=== PATIENT | female | born 1945 | race Caucasian/White ===

== ENCOUNTER 2022-02-24 09:34 | Inpatient (IN) ==
[2022-02-24] MEDS: *HR* Metformin 500 MG TABLET PO SCH (17:37)
[2022-02-24] MEDS: Primidone 50 MG TABLET PO SCH (21:35)
[2022-02-24] MEDS: rOPINIRole 0.25 MG TABLET PO SCH (21:35)
[2022-02-24] MEDS: Gabapentin 300 MG CAPSULE PO SCH (21:36)
[2022-02-25 03:53] LABS: Basophils % 0.4 %; Eosinophils # 0.2 K/mcL (0.0-0.6); Eosinophils % 2.1 %; Hematocrit 37.2 % (35.3-44.9); Hemoglobin 12.6 g/dL (11.5-15.4); Immature Granulocytes % 0.4 % (0-4); Lymphocytes # 2.4 K/mcL (0.6-4.6); Lymphocytes % 33.4 %; Mean Corpuscular HGB Conc 33.9 g/dL (31.6-35.5); Mean Corpuscular Hemoglobin 31.8 pg (28.0-33.3); Mean Corpuscular Volume 93.9 fL (83.0-100.0); Mean Platelet Volume 11.1 fL (9.4-12.4); Monocytes # 0.6 K/mcL (0.0-1.3); Monocytes % 8.7 %; Neutrophils # 3.9 K/mcL (1.6-8.9); Platelet Count 148 K/mcL (140-400); Red Blood Count 3.96 M/mcL (3.82-4.97); Red Cell Distribution Width 13.8 % (11.5-14.5)
[2022-02-25 04:08] LABS: Albumin 4.2 g/dL (3.5-5.7); Albumin/Globulin Ratio 1.4 (1.1-2.2); Bilirubin,Total 0.3 mg/dL (0.3-1.0); Calcium 9.4 mg/dL (8.6-10.3); Globulin 2.9 g/dL (2.4-3.5); Magnesium 1.8 mg/dL (1.6-2.6); Potassium 4.2 mEq/L (3.5-5.1); Total Protein 7.1 g/dL (6.4-8.9)
[2022-02-25] MEDS: Cyanocobalamin (B-12) 1,000 MCG TABLET PO SCH (08:53)
[2022-02-25] MEDS: allopurinoL 300 MG TABLET PO SCH (08:53)
[2022-02-25] MEDS: Gabapentin 300 MG CAPSULE PO SCH ×3 (08:53→20:22)
[2022-02-25] MEDS: Multivit/Ca/Min/Fe/FA 1 TAB TABLET PO SCH (08:53)
[2022-02-25] MEDS: Ascorbic Acid 500 MG TABLET PO SCH (08:54)
[2022-02-25] MEDS: Cholecalciferol (D-3) 1,000 UNIT (25MCG) TABLET PO SCH (08:55)
[2022-02-25] MEDS: *HR* Metformin 500 MG TABLET PO SCH ×2 (08:55→16:48)
[2022-02-25] MEDS: Furosemide 20 MG TABLET PO SCH (08:55)
[2022-02-25] MEDS: lisinopriL 20 MG TABLET PO SCH (08:55)
[2022-02-25] MEDS: Primidone 50 MG TABLET PO SCH ×3 (08:55→20:20)
[2022-02-25] MEDS ORDERED: *HR* GlipiZIDE XL (24 HR) 2.5 MG TABLET PO SCH (09:00)
[2022-02-25] MEDS ORDERED: Fluticasone Propionate Nasal 50 MCG/SPRAY BOTTLE NS SCH (09:00)
[2022-02-25] MEDS ORDERED: *HR* Pioglitazone 15 MG TABLET PO SCH ×2 (09:00→17:00)
[2022-02-25] MEDS ORDERED: (Dulaglutide [Trulicity] 1.5 MG/0.5 ML Pen.Injctr) SUBQ SCH (09:00)
[2022-02-25] MEDS ORDERED: Magnesium Oxide 400 MG TABLET PO SCH (09:00)
[2022-02-25] MEDS ORDERED: Fluticasone Propionate Nasal 50 MCG/SPRAY BOTTLE NS PRN (09:07)
[2022-02-25] MEDS ORDERED: Nystatin Cream 15 GM TUBE TP PRN (15:26)
[2022-02-25] MEDS: Acetaminophen 325 MG TABLET PO PRN ×2 (15:43→20:13)
[2022-02-25] MEDS: rOPINIRole 0.25 MG TABLET PO SCH (20:21)
[2022-02-26] MEDS: Cyanocobalamin (B-12) 1,000 MCG TABLET PO SCH (08:45)
[2022-02-26] MEDS: Primidone 50 MG TABLET PO SCH ×3 (08:45→21:01)
[2022-02-26] MEDS: Ascorbic Acid 500 MG TABLET PO SCH (08:45)
[2022-02-26] MEDS: Cholecalciferol (D-3) 1,000 UNIT (25MCG) TABLET PO SCH (08:45)
[2022-02-26] MEDS: lisinopriL 20 MG TABLET PO SCH (08:45)
[2022-02-26] MEDS: Acetaminophen 325 MG TABLET PO PRN ×3 (08:46→20:58)
[2022-02-26] MEDS: Multivit/Ca/Min/Fe/FA 1 TAB TABLET PO SCH (08:46)
[2022-02-26] MEDS: Furosemide 20 MG TABLET PO SCH (08:46)
[2022-02-26] MEDS: Gabapentin 300 MG CAPSULE PO SCH ×3 (08:46→21:02)
[2022-02-26] MEDS: allopurinoL 300 MG TABLET PO SCH (08:46)
[2022-02-26] MEDS: *HR* Metformin 500 MG TABLET PO SCH ×2 (08:46→15:53)
[2022-02-26 19:45] LABS: Estimated Average Glucose 111 mg/dl; Hemoglobin A1C 5.5 %
[2022-02-26] MEDS: rOPINIRole 0.25 MG TABLET PO SCH (21:01)
[2022-02-27] MEDS: Cyanocobalamin (B-12) 1,000 MCG TABLET PO SCH (08:28)
[2022-02-27] MEDS: *HR* Metformin 500 MG TABLET PO SCH ×2 (08:28→15:32)
[2022-02-27] MEDS: Furosemide 20 MG TABLET PO SCH (08:28)
[2022-02-27] MEDS: lisinopriL 20 MG TABLET PO SCH (08:28)
[2022-02-27] MEDS: Ascorbic Acid 500 MG TABLET PO SCH (08:28)
[2022-02-27] MEDS: Primidone 50 MG TABLET PO SCH ×3 (08:28→19:50)
[2022-02-27] MEDS: Multivit/Ca/Min/Fe/FA 1 TAB TABLET PO SCH (08:28)
[2022-02-27] MEDS: Gabapentin 300 MG CAPSULE PO SCH ×3 (08:28→19:49)
[2022-02-27] MEDS: Cholecalciferol (D-3) 1,000 UNIT (25MCG) TABLET PO SCH (08:29)
[2022-02-27] MEDS: allopurinoL 300 MG TABLET PO SCH (08:29)
[2022-02-27] MEDS: rOPINIRole 0.25 MG TABLET PO SCH (19:49)
[2022-02-27] MEDS: Acetaminophen 325 MG TABLET PO PRN (19:55)
[2022-02-28] MEDS: *HR* Metformin 500 MG TABLET PO SCH ×2 (09:00→16:52)
[2022-02-28] MEDS: Ascorbic Acid 500 MG TABLET PO SCH (09:00)
[2022-02-28] MEDS: Cholecalciferol (D-3) 1,000 UNIT (25MCG) TABLET PO SCH (09:00)
[2022-02-28] MEDS: Multivit/Ca/Min/Fe/FA 1 TAB TABLET PO SCH (09:00)
[2022-02-28] MEDS: allopurinoL 300 MG TABLET PO SCH (09:00)
[2022-02-28] MEDS: Gabapentin 300 MG CAPSULE PO SCH ×3 (09:01→21:11)
[2022-02-28] MEDS: Furosemide 20 MG TABLET PO SCH (09:01)
[2022-02-28] MEDS: Primidone 50 MG TABLET PO SCH ×3 (09:01→21:13)
[2022-02-28] MEDS: Cyanocobalamin (B-12) 1,000 MCG TABLET PO SCH (09:01)
[2022-02-28] MEDS: lisinopriL 20 MG TABLET PO SCH (09:01)
[2022-02-28] MEDS: (Dulaglutide [Trulicity] 1.5 MG/0.5 ML Pen.Injctr) SUBQ SCH (09:08)
[2022-02-28] MEDS: rOPINIRole 0.25 MG TABLET PO SCH (21:11)
[2022-02-28] MEDS: Acetaminophen 325 MG TABLET PO PRN (21:17)
[2022-03-01 05:01] LABS: Basophils % 0.4 %; Eosinophils # 0.1 K/mcL (0.0-0.6); Eosinophils % 1.8 %; Hematocrit 35.6 % (35.3-44.9); Hemoglobin 12.2 g/dL (11.5-15.4); Immature Granulocytes % 0.3 % (0-4); Lymphocytes % 39.2 %; Mean Corpuscular HGB Conc 34.3 g/dL (31.6-35.5); Mean Corpuscular Hemoglobin 31.8 pg (28.0-33.3); Mean Corpuscular Volume 92.7 fL (83.0-100.0); Mean Platelet Volume 11.2 fL (9.4-12.4); Monocytes # 0.6 K/mcL (0.0-1.3); Monocytes % 7.7 %; Neutrophils # 3.8 K/mcL (1.6-8.9); Platelet Count 155 K/mcL (140-400); Red Blood Count 3.84 M/mcL (3.82-4.97); Red Cell Distribution Width 14.1 % (11.5-14.5); Segmented Neutrophils % 50.6 %; White Blood Count 7.6 K/mcL (4.3-11.1)
[2022-03-01 05:16] LABS: Calcium 9.4 mg/dL (8.6-10.3); Potassium 4.8 mEq/L (3.5-5.1)
[2022-03-01] MEDS: Primidone 50 MG TABLET PO SCH ×3 (10:28→21:40)
[2022-03-01] MEDS: Multivit/Ca/Min/Fe/FA 1 TAB TABLET PO SCH (10:28)
[2022-03-01] MEDS: Ascorbic Acid 500 MG TABLET PO SCH (10:28)
[2022-03-01] MEDS: Cholecalciferol (D-3) 1,000 UNIT (25MCG) TABLET PO SCH (10:28)
[2022-03-01] MEDS: allopurinoL 300 MG TABLET PO SCH (10:28)
[2022-03-01] MEDS: *HR* Metformin 500 MG TABLET PO SCH ×2 (10:29→15:35)
[2022-03-01] MEDS: lisinopriL 20 MG TABLET PO SCH (10:29)
[2022-03-01] MEDS: Gabapentin 300 MG CAPSULE PO SCH ×3 (10:29→21:40)
[2022-03-01] MEDS: Furosemide 20 MG TABLET PO SCH (10:29)
[2022-03-01] MEDS: Cyanocobalamin (B-12) 1,000 MCG TABLET PO SCH (10:29)
[2022-03-01] MEDS: rOPINIRole 0.25 MG TABLET PO SCH (21:40)
[2022-03-01] MEDS: Acetaminophen 325 MG TABLET PO PRN (21:41)
[2022-03-02] MEDS: Ascorbic Acid 500 MG TABLET PO SCH (09:10)
[2022-03-02] MEDS: Cholecalciferol (D-3) 1,000 UNIT (25MCG) TABLET PO SCH (09:10)
[2022-03-02] MEDS: *HR* Metformin 500 MG TABLET PO SCH ×2 (09:10→16:25)
[2022-03-02] MEDS: Cyanocobalamin (B-12) 1,000 MCG TABLET PO SCH (09:10)
[2022-03-02] MEDS: Multivit/Ca/Min/Fe/FA 1 TAB TABLET PO SCH (09:10)
[2022-03-02] MEDS: Gabapentin 300 MG CAPSULE PO SCH ×3 (09:10→22:15)
[2022-03-02] MEDS: Furosemide 20 MG TABLET PO SCH (09:11)
[2022-03-02] MEDS: lisinopriL 20 MG TABLET PO SCH (09:11)
[2022-03-02] MEDS: Primidone 50 MG TABLET PO SCH ×3 (09:11→22:16)
[2022-03-02] MEDS: allopurinoL 300 MG TABLET PO SCH (09:11)
[2022-03-02] MEDS: Acetaminophen 325 MG TABLET PO PRN (16:29)
[2022-03-02] MEDS ORDERED: *HR* Dextrose 50 % in Water (Syg) 50 ML SYRINGE IVP PRN (18:19)
[2022-03-02] MEDS ORDERED: D5% in Water 1,000 ML IVC PRN (18:19)
[2022-03-02] MEDS ORDERED: Dextrose Gel 15 GM/37.5 ML TUBE PO PRN ×2 (18:19)
[2022-03-02] MEDS ORDERED: Insulin DETEMIR 100 UNIT/ML X5UNITS SUBQ SCH (21:00)
[2022-03-02] MEDS ORDERED: Insulin DETEMIR 100 UNIT/ML per UNIT SUBQ ONE (21:00)
[2022-03-02] MEDS ORDERED: Insulin LISPRO 300 UNITS/3 ML VIAL SUBQ SCH (21:00)
[2022-03-02] MEDS: rOPINIRole 0.25 MG TABLET PO SCH (22:17)
[2022-03-03 05:08] LABS: Basophils % 0.5 %; Eosinophils # 0.1 K/mcL (0.0-0.6); Hematocrit 35.8 % (35.3-44.9); Hemoglobin 12.1 g/dL (11.5-15.4); Immature Granulocytes % 0.3 % (0-4); Lymphocytes # 2.5 K/mcL (0.6-4.6); Lymphocytes % 38.9 %; Mean Corpuscular HGB Conc 33.8 g/dL (31.6-35.5); Mean Corpuscular Hemoglobin 31.6 pg (28.0-33.3); Mean Corpuscular Volume 93.5 fL (83.0-100.0); Mean Platelet Volume 10.8 fL (9.4-12.4); Monocytes # 0.5 K/mcL (0.0-1.3); Monocytes % 7.5 %; Neutrophils # 3.3 K/mcL (1.6-8.9); Red Blood Count 3.83 M/mcL (3.82-4.97); Segmented Neutrophils % 50.8 %; White Blood Count 6.5 K/mcL (4.3-11.1)
[2022-03-03 05:15] LABS: Platelet Count 135 K/mcL (140-400)
[2022-03-03 05:16] LABS: Platelet Estimate Normal (Normal)
[2022-03-03 05:24] LABS: Albumin/Globulin Ratio 1.6 (1.1-2.2); Bilirubin,Total 0.3 mg/dL (0.3-1.0); Calcium 9.1 mg/dL (8.6-10.3); Globulin 2.5 g/dL (2.4-3.5); Magnesium 1.6 mg/dL (1.6-2.6); Potassium 4.4 mEq/L (3.5-5.1); Total Protein 6.5 g/dL (6.4-8.9)
[2022-03-03 05:53] LABS: Thyroid Stimulating Hormone 2.119 mcIU/mL (0.340-5.600)
[2022-03-03] MEDS ORDERED: Insulin LISPRO 300 UNITS/3 ML VIAL SUBQ SCH (07:30)
[2022-03-03] MEDS: Cyanocobalamin (B-12) 1,000 MCG TABLET PO SCH (08:34)
[2022-03-03] MEDS: Multivit/Ca/Min/Fe/FA 1 TAB TABLET PO SCH (08:34)
[2022-03-03] MEDS: allopurinoL 300 MG TABLET PO SCH (08:34)
[2022-03-03] MEDS: Cholecalciferol (D-3) 1,000 UNIT (25MCG) TABLET PO SCH (08:34)
[2022-03-03] MEDS: lisinopriL 20 MG TABLET PO SCH (08:35)
[2022-03-03] MEDS: Ascorbic Acid 500 MG TABLET PO SCH (08:35)
[2022-03-03] MEDS: Furosemide 20 MG TABLET PO SCH (08:35)
[2022-03-03] MEDS: Acetaminophen 325 MG TABLET PO PRN ×3 (08:35→20:57)
[2022-03-03] MEDS: Gabapentin 300 MG CAPSULE PO SCH ×3 (08:35→20:56)
[2022-03-03] MEDS: Primidone 50 MG TABLET PO SCH ×3 (08:36→20:56)
[2022-03-03] MEDS: *HR* Metformin 500 MG TABLET PO SCH ×2 (08:36→15:38)
[2022-03-03] MEDS ORDERED: Insulin DETEMIR 100 UNIT/ML X5UNITS SUBQ SCH (09:00)
[2022-03-03] MEDS: rOPINIRole 0.25 MG TABLET PO SCH (20:56)
[2022-03-04] MEDS: Gabapentin 300 MG CAPSULE PO SCH ×3 (08:33→22:16)
[2022-03-04] MEDS: Ascorbic Acid 500 MG TABLET PO SCH (08:33)
[2022-03-04] MEDS: Furosemide 20 MG TABLET PO SCH (08:33)
[2022-03-04] MEDS: *HR* Metformin 500 MG TABLET PO SCH ×2 (08:34→16:54)
[2022-03-04] MEDS: lisinopriL 20 MG TABLET PO SCH (08:34)
[2022-03-04] MEDS: Cholecalciferol (D-3) 1,000 UNIT (25MCG) TABLET PO SCH (08:34)
[2022-03-04] MEDS: Multivit/Ca/Min/Fe/FA 1 TAB TABLET PO SCH (08:34)
[2022-03-04] MEDS: allopurinoL 300 MG TABLET PO SCH (08:34)
[2022-03-04] MEDS: Cyanocobalamin (B-12) 1,000 MCG TABLET PO SCH (08:34)
[2022-03-04] MEDS: Primidone 50 MG TABLET PO SCH ×3 (08:34→22:17)
[2022-03-04] MEDS: Acetaminophen 325 MG TABLET PO PRN (12:38)
[2022-03-04] MEDS: rOPINIRole 0.25 MG TABLET PO SCH (22:17)
[2022-03-05] MEDS: lisinopriL 20 MG TABLET PO SCH (11:52)
[2022-03-05] MEDS: Primidone 50 MG TABLET PO SCH ×3 (11:52→22:33)
[2022-03-05] MEDS: Furosemide 20 MG TABLET PO SCH (11:52)
[2022-03-05] MEDS: Gabapentin 300 MG CAPSULE PO SCH ×3 (11:52→22:33)
[2022-03-05] MEDS: Cholecalciferol (D-3) 1,000 UNIT (25MCG) TABLET PO SCH (11:52)
[2022-03-05] MEDS: *HR* Metformin 500 MG TABLET PO SCH ×2 (11:52→16:18)
[2022-03-05] MEDS: Cyanocobalamin (B-12) 1,000 MCG TABLET PO SCH (11:53)
[2022-03-05] MEDS: Acetaminophen 325 MG TABLET PO PRN ×2 (11:53→22:33)
[2022-03-05] MEDS: Multivit/Ca/Min/Fe/FA 1 TAB TABLET PO SCH (11:53)
[2022-03-05] MEDS: allopurinoL 300 MG TABLET PO SCH (11:53)
[2022-03-05] MEDS: Ascorbic Acid 500 MG TABLET PO SCH (11:53)
[2022-03-05] MEDS: rOPINIRole 0.25 MG TABLET PO SCH (22:33)
[2022-03-06] MEDS: Cyanocobalamin (B-12) 1,000 MCG TABLET PO SCH (08:46)
[2022-03-06] MEDS: Primidone 50 MG TABLET PO SCH ×3 (08:46→22:29)
[2022-03-06] MEDS: Ascorbic Acid 500 MG TABLET PO SCH (08:46)
[2022-03-06] MEDS: lisinopriL 20 MG TABLET PO SCH (08:47)
[2022-03-06] MEDS: Cholecalciferol (D-3) 1,000 UNIT (25MCG) TABLET PO SCH (08:47)
[2022-03-06] MEDS: allopurinoL 300 MG TABLET PO SCH (08:47)
[2022-03-06] MEDS: *HR* Metformin 500 MG TABLET PO SCH ×2 (08:49→15:52)
[2022-03-06] MEDS: Gabapentin 300 MG CAPSULE PO SCH ×3 (08:49→22:34)
[2022-03-06] MEDS: Furosemide 20 MG TABLET PO SCH (08:49)
[2022-03-06] MEDS: Multivit/Ca/Min/Fe/FA 1 TAB TABLET PO SCH (08:49)
[2022-03-06 13:02] LABS: Bilirubin,Urine Negative (Negative); Blood,Urine Trace-intact (Negative); Clarity,Urine Cloudy (Clear); Color,Urine Yellow (Yellow); Glucose,Urine (UA) Normal (Normal); Ketones,Urine Negative (Negative); Leukocyte Esterase,Urine Moderate (Negative); Nitrite,Urine Positive (Negative); Protein,Urine Negative (Neg-Trace); Urobilinogen,Urine Normal (Normal)
[2022-03-06 13:12] LABS: Bacteria,Urine Few per hpf (None-Few); Squamous Epithelial Cell,Urine Few per hpf (None-Few); WBC,Urine 30-50 per hpf (0-3)
[2022-03-06] MEDS: Acetaminophen 325 MG TABLET PO PRN (22:30)
[2022-03-06] MEDS: rOPINIRole 0.25 MG TABLET PO SCH (22:33)
[2022-03-07 04:35] LABS: Hematocrit 35.1 % (35.3-44.9); Hemoglobin 11.9 g/dL (11.5-15.4); Mean Corpuscular HGB Conc 33.9 g/dL (31.6-35.5); Mean Corpuscular Hemoglobin 31.6 pg (28.0-33.3); Mean Corpuscular Volume 93.4 fL (83.0-100.0); Mean Platelet Volume 11.1 fL (9.4-12.4); Platelet Count 143 K/mcL (140-400); Red Blood Count 3.76 M/mcL (3.82-4.97); White Blood Count 7.2 K/mcL (4.3-11.1)
[2022-03-07 04:48] LABS: Alanine Aminotransferase 21 Units/L (7-52); Albumin/Globulin Ratio 1.4 (1.1-2.2); Alkaline Phosphatase 72 Units/L (34-104); Aspartate Amino Transferase 18 Units/L (13-39); BUN/Creatinine Ratio 31 (6-26); Bilirubin,Total 0.3 mg/dL (0.3-1.0); Blood Urea Nitrogen 18 mg/dL (8-23); Calcium 9.1 mg/dL (8.6-10.3); Carbon Dioxide 27 mEq/L (23-29); Chloride 102 mEq/L (98-107); Globulin 2.8 g/dL (2.4-3.5); Glucose 108 mg/dL (70-105); Magnesium 1.6 mg/dL (1.6-2.6); Osmolality,Calculated 284 (280-300); Sodium 136 mEq/L (136-145); Total Protein 6.8 g/dL (6.4-8.9)
[2022-03-07] MEDS: Ascorbic Acid 500 MG TABLET PO SCH (09:15)
[2022-03-07] MEDS: *HR* Metformin 500 MG TABLET PO SCH ×2 (09:16→16:39)
[2022-03-07] MEDS: Primidone 50 MG TABLET PO SCH ×3 (09:16→21:33)
[2022-03-07] MEDS: allopurinoL 300 MG TABLET PO SCH (09:16)
[2022-03-07] MEDS: Cholecalciferol (D-3) 1,000 UNIT (25MCG) TABLET PO SCH (09:16)
[2022-03-07] MEDS: Multivit/Ca/Min/Fe/FA 1 TAB TABLET PO SCH (09:17)
[2022-03-07] MEDS: Cyanocobalamin (B-12) 1,000 MCG TABLET PO SCH (09:17)
[2022-03-07] MEDS: lisinopriL 20 MG TABLET PO SCH (09:17)
[2022-03-07] MEDS: Furosemide 20 MG TABLET PO SCH (09:17)
[2022-03-07] MEDS: Gabapentin 300 MG CAPSULE PO SCH ×3 (09:17→21:34)
[2022-03-07] MEDS: (Dulaglutide [Trulicity] 1.5 MG/0.5 ML Pen.Injctr) SUBQ SCH (09:25)
[2022-03-07] MEDS: rOPINIRole 0.25 MG TABLET PO SCH (21:33)
[2022-03-07] MEDS: Acetaminophen 325 MG TABLET PO PRN (21:35)
[2022-03-08] MEDS: Cholecalciferol (D-3) 1,000 UNIT (25MCG) TABLET PO SCH (08:40)
[2022-03-08] MEDS: Gabapentin 300 MG CAPSULE PO SCH ×3 (08:40→20:58)
[2022-03-08] MEDS: Primidone 50 MG TABLET PO SCH ×3 (08:40→20:58)
[2022-03-08] MEDS: allopurinoL 300 MG TABLET PO SCH (08:40)
[2022-03-08] MEDS: *HR* Metformin 500 MG TABLET PO SCH ×2 (08:40→16:51)
[2022-03-08] MEDS: Cyanocobalamin (B-12) 1,000 MCG TABLET PO SCH (08:41)
[2022-03-08] MEDS: lisinopriL 20 MG TABLET PO SCH (08:41)
[2022-03-08] MEDS: Ascorbic Acid 500 MG TABLET PO SCH (08:41)
[2022-03-08] MEDS: Furosemide 20 MG TABLET PO SCH (08:41)
[2022-03-08] MEDS: Multivit/Ca/Min/Fe/FA 1 TAB TABLET PO SCH (08:41)
[2022-03-08] MEDS ORDERED: Aspirin Enteric Coated 81 MG Tablet PO SCH (09:00)
[2022-03-08] MEDS: Acetaminophen 325 MG TABLET PO PRN (16:51)
[2022-03-08] MEDS: rOPINIRole 0.25 MG TABLET PO SCH (20:58)
[2022-03-09] MEDS: Primidone 50 MG TABLET PO SCH ×3 (08:38→21:52)
[2022-03-09] MEDS: Cholecalciferol (D-3) 1,000 UNIT (25MCG) TABLET PO SCH (08:38)
[2022-03-09] MEDS: Cyanocobalamin (B-12) 1,000 MCG TABLET PO SCH (08:38)
[2022-03-09] MEDS: lisinopriL 20 MG TABLET PO SCH (08:39)
[2022-03-09] MEDS: Gabapentin 300 MG CAPSULE PO SCH ×3 (08:39→21:52)
[2022-03-09] MEDS: Multivit/Ca/Min/Fe/FA 1 TAB TABLET PO SCH (08:39)
[2022-03-09] MEDS: *HR* Metformin 500 MG TABLET PO SCH ×2 (08:39→16:15)
[2022-03-09] MEDS: allopurinoL 300 MG TABLET PO SCH (08:39)
[2022-03-09] MEDS: Furosemide 20 MG TABLET PO SCH (08:39)
[2022-03-09] MEDS: Ascorbic Acid 500 MG TABLET PO SCH (08:39)
[2022-03-09] MEDS: Aspirin Enteric Coated 81 MG Tablet PO SCH (16:19)
[2022-03-09] MEDS: rOPINIRole 0.25 MG TABLET PO SCH (21:51)
[2022-03-10 05:10] LABS: Hematocrit 35.8 % (35.3-44.9); Mean Corpuscular HGB Conc 33.5 g/dL (31.6-35.5); Mean Corpuscular Hemoglobin 31.3 pg (28.0-33.3); Mean Corpuscular Volume 93.2 fL (83.0-100.0); Platelet Count 133 K/mcL (140-400); Red Blood Count 3.84 M/mcL (3.82-4.97); Red Cell Distribution Width 13.9 % (11.5-14.5); White Blood Count 6.9 K/mcL (4.3-11.1)
[2022-03-10 05:23] LABS: Calcium 9.1 mg/dL (8.6-10.3); Magnesium 1.7 mg/dL (1.6-2.6); Potassium 4.3 mEq/L (3.5-5.1)
[2022-03-10] MEDS: Cyanocobalamin (B-12) 1,000 MCG TABLET PO SCH (08:32)
[2022-03-10] MEDS: Aspirin Enteric Coated 81 MG Tablet PO SCH (08:33)
[2022-03-10] MEDS: allopurinoL 300 MG TABLET PO SCH (08:33)
[2022-03-10] MEDS: Gabapentin 300 MG CAPSULE PO SCH ×3 (08:33→21:10)
[2022-03-10] MEDS: Ascorbic Acid 500 MG TABLET PO SCH (08:33)
[2022-03-10] MEDS: *HR* Metformin 500 MG TABLET PO SCH ×2 (08:33→17:28)
[2022-03-10] MEDS: lisinopriL 20 MG TABLET PO SCH (08:33)
[2022-03-10] MEDS: Multivit/Ca/Min/Fe/FA 1 TAB TABLET PO SCH (08:33)
[2022-03-10] MEDS: Primidone 50 MG TABLET PO SCH ×3 (08:33→21:10)
[2022-03-10] MEDS: Cholecalciferol (D-3) 1,000 UNIT (25MCG) TABLET PO SCH (08:33)
[2022-03-10] MEDS: Furosemide 20 MG TABLET PO SCH (08:33)
[2022-03-10] MEDS: rOPINIRole 0.25 MG TABLET PO SCH (21:10)
[2022-03-11 07:23] VITALS: BP 120/71; PULSE 66; RESP 16; TEMP 98.2; O2SAT 97
[2022-03-11] MEDS: allopurinoL 300 MG TABLET PO SCH (08:36)
[2022-03-11] MEDS: Cyanocobalamin (B-12) 1,000 MCG TABLET PO SCH (08:36)
[2022-03-11] MEDS: Cholecalciferol (D-3) 1,000 UNIT (25MCG) TABLET PO SCH (08:36)
[2022-03-11] MEDS: lisinopriL 20 MG TABLET PO SCH (08:36)
[2022-03-11] MEDS: Ascorbic Acid 500 MG TABLET PO SCH (08:37)
[2022-03-11] MEDS: Multivit/Ca/Min/Fe/FA 1 TAB TABLET PO SCH (08:37)
[2022-03-11] MEDS: Aspirin Enteric Coated 81 MG Tablet PO SCH (08:37)
[2022-03-11] MEDS: Gabapentin 300 MG CAPSULE PO SCH (08:37)
[2022-03-11] MEDS: Primidone 50 MG TABLET PO SCH (08:37)
[2022-03-11] MEDS: Furosemide 20 MG TABLET PO SCH (08:37)
[2022-03-11] MEDS: *HR* Metformin 500 MG TABLET PO SCH (08:37)
== END 2022-03-11 15:45 | disposition home or self-care (01) | DRG 69 ==
LOC: INPGRE 13:11
PROVIDERS: ADMIT Family Medicine; ATTEND Family Medicine